=== PATIENT | female | born 1990 | race Caucasian/White ===

== ENCOUNTER → 2016-11-03 | Outpatient (CLI) | payer OTHER ==
[2016-11-05 12:08] LABS: HEP B SURF. AB 176.2 mIU/mL (0.0-10.0)
[2016-11-05 12:39] LABS: HEPATITIS C VIRUS ANTIBODY Nonreactive (Nonreactive)
== END | disposition home or self-care (01) ==
LOC: LAB 06:30
PROVIDERS: ATTEND Internal Medicine
DX: Z11.4 Encounter for screening for human immunodeficiency virus [HIV] (principal)
CPT/HCPCS: 36415; 86706; 86803

== ENCOUNTER 2016-12-12 07:59 | Emergency (ER) | payer OTHER ==
[~2016-12-12] VITALS: Ht 167.6 cm; Wt 85.6 kg
[2016-12-12 08:00] VITALS: BP 134/78
== END 2016-12-12 08:39 | disposition home or self-care (01) ==
LOC: ED 08:15
DX: S60.931A Unspecified superficial injury of right thumb, initial encounter (principal); X58.XXXA Exposure to other specified factors, initial encounter; Y93.89 Activity, other specified; Y92.89 Other specified places as the place of occurrence of the external cause; Y99.8 Other external cause status
CPT/HCPCS: 99281